=== PATIENT | female | born 1955 | race Caucasian/White ===

== ENCOUNTER 2023-09-10 15:15 | Outpatient (AMB) | payer BC, SELFPAY ==
[2023-09-10 15:55] VITALS: BP 122/70; PULSE 53; O2SAT 100; BMI 21.6
--- NOTE | 2023-09-10 15:55 | MHC.OFFVIS ---
Intake Vital Signs 09/10/23 15:55 Height 5 ft 6.5 in Weight 136 lb BMI 21.6 BP 122/70 Blood Pressure Location Lt brachial Position Sitting Pulse 53 Pulse Source Pulse Oximeter Pulse Oximetry (%) 100 Oxygen Delivery Method Room Air Intake Visit Reasons: question of shortness of breath [employer] Combination Teacher Required: No Private Branch Exchange Repairer: Private Branch Exchange Repairer offered & declined Accompanied by: Self / Same As Patient Allergies No Known Allergies Allergy (Verified 09/10/23 16:00) Medication List - Last Reconciled 09/10/23 by Oneyda Mccoy LPN benzonatate 100 mg PO BID-TID PRN clonazepam 0.25 mg PO BID lamotrigine 200 mg PO DAILY lithium carbonate ER 300 mg PO DAILY omeprazole 10 mg PO DAILY valsartan 160 mg PO DAILY HPI question of shortness of breath HPI Details Lexi is a pleasant 67 year old female, never smoker, with underlying hypertension, hypothyroidism, GERD, and bipolar. She was referred by PCP for pulmonary evaluation. She reports more frequent episodes of dyspnea with moderate exertion, dry cough and substernal nonradiating chest discomfort that began after having COVID in February 2023. She reports frequency and intensity of cough has decreased and denies wheezing. She reportedly had a cardiac evaluation which was unremarkable. She had a recent PFT which was suggestive of asthma, full report below. CXR unremarkable. She also reports difficulty with eating, often resulting in cough or choking on foods/liquids and feeling as though food gets stuck in her throat. She previously reported symptoms of heartburn using PPI. She reports having an upcoming appointment for GI evaluation. She denies any personal or family history of respiratory conditions. She denies any occupational exposures. [facility] Social History (Updated 09/10/23 @ 16:01 by Oneyda Mccoy LPN) Patient Tobacco Use Status: Never used Tobacco Smoked in Last 30 Days: No Review of Systems Const Denies chills, Denies excessive sweating, Denies fever(s), Denies headache(s) and Denies night sweats Eyes Denies irritation and Denies itchy eyes ENT Reports Normal hearing present, Denies headache(s), Denies nasal congestion, Denies nasal discharge and Denies sore throat Card Denies chest pain at rest, Denies chest pain with activity, Denies claudication, Denies leg edema, Denies orthopnea and Denies paroxysmal nocturnal dyspnea Resp Denies chest congestion, Denies excessive phlegm production, Denies pain on inspiration, Denies pain with cough, Denies stridor and Denies wheezing Musc Denies myalgias Neuro Reports Normal hearing present and Denies headache(s) Endo Denies excessive sweating Stewart/Lymph Denies lymphadenopathy Aller/Immun Denies itchy eyes, Denies seasonal rhinorrhea and Denies wheezing Physical Exam Vital Signs: Last Vital Signs Pulse 53 09/10/23 15:55 BP 122/70 09/10/23 15:55 Pulse Ox 100 09/10/23 15:55 Oxygen Delivery Method Room Air 09/10/23 15:55 BMI result Body Mass Index 21.6 Const General: cooperative, healthy appearing, comfortable, no acute distress, well developed and alert Orientation/consciousness: patient oriented x3 Limitations: no limitations HEENT Head: Yes normal to inspection, Yes normocephalic and Yes atraumatic Ears: hearing grossly normal bilaterally and external ears normal Eyes General: appearance normal, both eyes and all related structures Eyelids: Yes eyelids normal Sclerae: sclerae normal EOM: EOMs intact bilaterally Neck Neck: Yes normal visual inspection and Yes no lymphadenopathy Lymphatic: no lymphadenopathy noted Chest Chest palpation & inspection: normal inspection of the chest Resp Effort & Inspection: normal respiratory effort, able to speak in complete sentences, no audible wheezes, no cough, no stridor, not tachypneic, no tripod positioning and no use of accessory muscles Auscultation: clear to auscultation bilaterally Cardio Jugular venous distension: no JVD Rate: regular rate Rhythm: regular rhythm Skin Other: warm, dry General skin exam: no rashes or lesions noted Neuro General: patient oriented x3 Cranial nerves: Yes Normal hearing present Cognition (Neuro): normal cognition Gait exam (Neuro): Normal gait present Extrem General: Yes normal to inspection, Yes capillary refill normal, Yes no clubbing, cyanosis or edema and Yes no pedal edema Psych Appearance: grossly normal and well kempt Speech and movement: Normal speech and movement present and Clear speech present Affect: normal affect Attitude: cooperative Thought process: Normal thought process present Thought content: Normal thought content present Insight: Good insight present (Psych) Judgement: Good judgement present (Psych) Results Reviewed Results Reviewed: Assessment & Plan Assessment & Plan (1) Asthma: Code(s): J45.909 - Unspecified asthma, uncomplicated (2) Dyspnea on exertion: Code(s): R06.09 - Other forms of dyspnea (3) Cough: Code(s): R05.9 - Cough, unspecified (4) Dysphagia: Code(s): R13.10 - Dysphagia, unspecified Plan Lexi's symptoms are likely related to underlying asthma and possible GERD versus microaspiration. PFT revealed normal spirometry with significant response to bronchodilator. TLC 124%, RV 176%, suggestive of air trapping. DLCO within normal limits. Had long detailed discussion regarding PFT and trialing a ESPERANZA vs ICS/LABA. Patient hesitant to trial medications but willing to trial albuterol. Patient with persistent cough and normal CXR, will send for chest CT to evaluate for any parenchymal disease. Patient also reported symptoms of dysphasia that may be contributing to symptoms. Will send for barium swallow. All questions were answered and patient is in agreement of plan. Will follow up in 4-6 weeks to review results and response to inhaler. Orders: Orders CT chest wo IV con Today R05.9 - Cough, unspecified, R06.09 - Other forms of dyspnea FL barium swallow modified Today R13.10 - Dysphagia, unspecified Medications: New albuterol sulfate 90 mcg/actuation 2 puffs inhalation Q4-6H PRN 1 ea 3RF shortness of breath or wheezing Coding Level of Care Code New Pt Level 5 (69738) Diagnoses Asthma J45.909 Dyspnea on exertion R06.09 Cough R05.9 Dysphagia R13.10 Time Spent (min) 50
== END 2023-09-10 16:54 | disposition home or self-care (01) ==
LOC: HO.HPSW 15:15
PROVIDERS: PCP Internal Medicine; Referring Provider Internal Medicine; Visit Provider Nurse Practitioner Family
DX: J45.909 Unspecified asthma, uncomplicated (principal); R05.9 Cough, unspecified; R13.10 Dysphagia, unspecified
CPT/HCPCS: 99205

== ENCOUNTER → 2023-09-10 15:15 | Outpatient (BNVA) | payer BC, SELFPAY | PROVIDERS: PCP Internal Medicine; Visit Provider Nurse Practitioner Family ==

== ENCOUNTER 2023-10-10 16:46 | Outpatient (REF) | payer BC, SELFPAY ==
--- NOTE | ~2023-10-10 | CT_ITS ---
EXAMINATION: CT CHEST WITHOUT CONTRAST CLINICAL INFORMATION: Cough, unspecified. COMPARISON: None available. TECHNIQUE: Multidetector volumetric CT imaging of the chest was done. Axial MIP volume rendering provided. Sagittal and coronal reformatted images were obtained. This CT examination was performed using dose optimization techniques as appropriate, variously including the following: *Automated exposure control *Adjustment of mA and/or kV according to patient size (this includes techniques or standardized protocols for targeted exams where dose is matched to indication/reason for exam; i.e. extremities or head) *Use of iterative reconstruction technique DLP: 126 mGy-cm FINDINGS: LUNGS: Mild biapical pleural parenchymal scarring. Mildly thick-walled airways. No evidence of interstitial lung disease. No focal consolidation. No suspicious lung nodules. MEDIASTINUM: No adenopathy. Ascending aorta top normal in size measuring 3.9 cm. CORONARY ARTERY CALCIFICATION: None visualized on this study. PLEURA: There is no pleural effusion. No pleural mass or thickening. AXILLA: No lymphadenopathy. UPPER ABDOMEN: Simple cyst in the upper left kidney. No follow-up imaging is recommended. OSSEOUS STRUCTURES: Unremarkable. CT/CT chest wo IV con IMPRESSION: Mildly thick-walled airways. No focal pneumonia. Fleischner guidelines were followed.
== END 2023-10-10 16:47 | disposition home or self-care (01) ==
LOC: HO.CT 16:46
PROVIDERS: PCP Internal Medicine; Visit Provider Nurse Practitioner Family
DX: R05.9 Cough, unspecified (principal); R06.09 Other forms of dyspnea
CPT/HCPCS: 71250

== ENCOUNTER 2023-10-31 10:37 | Outpatient (REF) | payer BC, SELFPAY ==
--- NOTE | ~2023-10-31 | FL_ITS ---
EXAMINATION: Modified Barium Swallows CLINICAL INFORMATION: Dysphagia COMPARISON: None TECHNIQUE: Modified barium swallow was performed under lateral fluoroscopy with patient in standing position. Different consistency of barium was administered by the speech therapist. FINDINGS: Patient is status post anterior fusion of C5-C7. There are ventral osteophytes spanning C4-C5. Plate and screw fixation C5-C7 appears intact without complication. No laryngeal penetration or aspiration is noted. FLUOROSCOPY TIME: 24 seconds Number of Spot Images: 1 DOSE AREA PRODUCT: 220 uGy-m2 (microgray-meter squared) FL/FL barium swallow modified IMPRESSION: 1. No laryngeal penetration or aspiration is seen on this examination 2. Status post anterior cervical fusion of C5-C7 Refer to the full speech therapy report for further clarification This procedure was performed by Justin Babcock PA-C, and supervised by Dr. Mars
--- NOTE | 2023-11-13 14:02 | MHC.SL.IMP ---
Date of Plan of Treatment: 10/31/23 Onset of Symptoms/Illness: 10/31/23 Date Treatment Started: 10/31/23 Admitting Diagnosis: Dysphagia, unspecified (R13.10) Primary Speech & Language Diagnosis: R13.13 Pharyngeal Phase Dysphagia Reason for Today's Visit: 60400 Modified Barium Swallow Study Comments: Reports coughing while eating. Pre-evaluation Dietary Consistencies: Regular Pre-evaluation Liquid Consistency: Thin Pre-evaluation Medication Administration: Whole with Liquid Oral Motor Exam Facial Symmetry: Normal for Patient Symmetrical Facial Movement: Oral Expression Ability: No Impairment Is patient able to manage secretions?: Yes Is patient able to produce volitional cough?: Yes Food and Liquid Trials: Oral Impairment: Lip Closure: 0=No labial escape Oral Impairment: Tongue Control During Bolus Hold: 0=Cohesive bolus between tongue to palatal seal Oral Impairment: Bolus Preparation/Mastication: 0=Timely and efficient chewing and mashing Oral Impairment: Bolus Transport/Lingual Motion: 0=Brisk tongue motion Oral Impairment: Oral Residue: 1=Trace residue lining oral structures Oral Impairment:Initiation of Pharyngeal Swallow: 2=Bolus head at posterior laryngeal surface of epiglottis Pharyngeal Impairment: Soft Palate Elevation: 0=No bolus between soft palate (SP)/pharyngeal wall (PW) Pharyngeal Impairment: Laryngeal Elevation: 0=Complete superior movement of thyroid cartilage (see description) Pharyngeal Impairment: Anterior Hyoid Excursion: 0=Complete anterior movement Pharyngeal Impairment: Epiglottic Movement: 0=Complete inversion Pharyngeal Impairment: Laryngeal Vestibular Closure:: 0=Complete: no air/contrast in laryngeal vestibule Pharyngeal Impairment: Pharyngeal Stripping Wave: 0=Present: complete Pharyngeal Impairment: Pharyngeal Contraction: Did not test Pharyngeal Impairment: Pharyngoesophageal Segment Openin=Partial distention/partial duration: partial obstruction of flow Pharyngeal Impairment: Tongue Base (TB) Retraction: 1=Trace column of contrast/air between TB and posterior PW Pharyngeal Impairment: Pharyngeal Residue: 0=Complete pharyngeal clearance Pharyngeal Impairment: Esophageal Clearance Upright Position: Did not test Impressions and Recommendations Clinical Observations: Current (pre-evaluation) Intake/Diet: Pre-Study Functional Oral Intake Scale (FOIS): 7- Total oral intake with no restrictions MBSImP ID: [id number] Results: Lip closure for intraoral bolus containment resulted in no labial escape. Tongue control during bolus hold maintained a cohesive bolus held between tongue to palate seal. Bolus preparation and mastication resulted in timely and efficient chewing and mashing. Bolus transport/lingual motion was with brisk tongue motion. Oral residue was a trace, lining oral structures. Initiation of the pharyngeal swallow occurred as the bolus head was at the posterior laryngeal surface of the epiglottis. Soft palate elevation resulted in no bolus between the soft palate and the pharyngeal wall. Laryngeal elevation demonstrated complete superior movement of the thyroid cartilage with complete approximation of the arytenoids to the epiglottic petiole. Anterior hyoid excursion demonstrated complete anterior movement. Epiglottic movement resulted in complete inversion. Laryngeal vestibular closure was complete, as indicated by no air or contrast within the laryngeal vestibule at the height of the swallow. Pharyngeal stripping wave was present and complete. Pharyngeal contraction could not be determined due to logistical reasons not related to physiologic impairment. Pharyngoesophageal segment opening demonstrated partial distension/partial duration, with partial obstruction of bolus flow. Tongue base retraction allowed a trace column of contrast or air between the retracted tongue base and the posterior pharyngeal wall. Pharyngeal residue was not present. There was complete pharyngeal clearance. Esophageal clearance in the upright position could not be assessed due to logistical reasons not related to physiologic impairment. Oral Impairment Score: 2 Pharyngeal Impairment Score: 1 (absence of score, component 13) Esophageal Impairment Score: --- (absence of score, component 17) Laryngeal Penetration and Aspiration: Neither penetration nor aspiration was observed in today's study with Cookie, Pudding-thick, Thin. SUMMARY: No evidence of aspiration or penetration present during today's study. Incidental finding of a prominent CP bar anterior to her cervical fusion. Further assessment by GI if interventions are available. Pt was counselled extensively that she did not show significant pharyngeal residue that would account for her feeling of food being stuck. She provides vague information about her history with GI. She reports she has been cutting her prescribed PPI in half. She is advised to follow-up with this professional for updated recommendations and further diagnostic assessment of her globus sensation after the swallow. PLAN: Intake Recommendations: Post-Study Functional Oral Intake Scale (FOIS): 7- Total oral intake with no restrictions Liquid Intake Recommendation: Thin Liquid Intake Strategies: Unrestricted Dietary Recommendations: Regular Medication Administration: Whole with Liquid Please contact the pharmacy regarding appropriate crushable or liquid drug formulations that are available whenever modified delivery is recommended. Compensatory Strategies Recommended: Sitting Upright (90 deg) Small Bites and Sips Alternate Liquids/Solids Rate of Ingestion Change Avoid Specific Foods Supervision during eating and or drinking: None Needed Recommended Treatments: Compens. Strategy Educat. Recommendation for Speech Therapy: NA:Typical Evaluation Timeline to reassess: PRN Generator Rebuilder Clinician/Clinical Fellow: No Supervisory Statement: N/A Speech Language Pathologist: Pankaj Chaudhari M.A., CCC-SLAB LIFTING ENGINEER
== END 2023-10-31 10:38 | disposition home or self-care (01) ==
LOC: HO.XRAY 10:37
PROVIDERS: PCP Internal Medicine; Visit Provider Nurse Practitioner Family
DX: R13.10 Dysphagia, unspecified (principal)
CPT/HCPCS: 74230; 92611

== ENCOUNTER → 2023-10-31 10:38 | Outpatient (BNV) | payer BC, SELFPAY | PROVIDERS: PCP Internal Medicine; Visit Provider Radiology Diagnostic Radiology | DX: R13.10 Dysphagia, unspecified (principal) | CPT/HCPCS: 74230 ==

== ENCOUNTER 2023-11-12 10:52 | Outpatient (AMB) | payer BC, SELFPAY ==
[2023-11-12 10:55] VITALS: BP 124/64; PULSE 56; O2SAT 100; BMI 21.3
--- NOTE | 2023-11-12 10:55 | MHC.OFFVIS ---
Intake Vital Signs 11/12/23 10:55 Height 5 ft 6.5 in Weight 134 lb BMI 21.3 BP 124/64 Blood Pressure Location Rt brachial Position Sitting Pulse 56 Pulse Source Pulse Oximeter Pulse Oximetry (%) 100 Oxygen Delivery Method Room Air Intake Visit Reasons: S/p pft Weaver Hand Loom Required: No Sap Business Objects Developer: Sap Business Objects Developer offered & declined Accompanied by: Self / Same As Patient Allergies No Known Allergies Allergy (Verified 11/12/23 11:02) Medication List - Last Reconciled 11/12/23 by Oneyda Mccoy LPN albuterol sulfate 90 mcg/actuation 2 puffs inhalation Q4-6H PRN benzonatate 100 mg PO BID-TID PRN clonazepam 0.25 mg PO BID lamotrigine 200 mg PO DAILY lithium carbonate ER 300 mg PO DAILY omeprazole 10 mg PO DAILY progesterone micronized 200 mg PO BEDTIME thyroid (pork) (IRRIGATION EQUIPMENT REMOVER Thyroid) 60 mg PO BID valsartan 160 mg PO DAILY HPI S/p pft HPI Details Lexi is a pleasant 67 year old female, never smoker, with underlying hypertension, hypothyroidism, GERD, and bipolar. She was referred by PCP for pulmonary evaluation. She reports more frequent episodes of dyspnea with moderate exertion, dry cough and substernal nonradiating chest discomfort that began after having COVID in February 2023. She reports frequency and intensity of cough has decreased and denies wheezing. She reportedly had a cardiac evaluation which was unremarkable. She had a recent PFT which was suggestive of asthma. At the last visit we discussed trialing an ICS but she wanted to hold off and use albuterol PRN. She reports infrequent use of albuterol. Today she presents to review chest CT, MDSS and discuss a methacholine challenge. Of note, she will be going to PT for evaluation of costcochondritis. REPLACED BY [facility] Social History (Updated 11/12/23 @ 11:05 by Oneyda Mccoy LPN) Patient Tobacco Use Status: Never used Tobacco Smoked in Last 30 Days: No Review of Systems Const Denies chills, Denies excessive sweating, Denies fever(s), Denies headache(s) and Denies night sweats Eyes Denies irritation and Denies itchy eyes ENT Reports Normal hearing present, Denies headache(s), Denies nasal congestion, Denies nasal discharge and Denies sore throat Card Denies chest pain at rest, Denies chest pain with activity, Denies claudication, Denies leg edema, Denies orthopnea and Denies paroxysmal nocturnal dyspnea Resp Denies chest congestion, Denies excessive phlegm production, Denies pain on inspiration, Denies pain with cough, Denies stridor and Denies wheezing Musc Denies myalgias Neuro Reports Normal hearing present and Denies headache(s) Endo Denies excessive sweating Stewart/Lymph Denies lymphadenopathy Aller/Immun Denies itchy eyes, Denies seasonal rhinorrhea and Denies wheezing Physical Exam Vital Signs: Last Vital Signs Pulse 56 11/12/23 10:55 BP 124/64 11/12/23 10:55 Pulse Ox 100 11/12/23 10:55 Oxygen Delivery Method Room Air 11/12/23 10:55 BMI result Body Mass Index 21.3 Const General: cooperative, healthy appearing, comfortable, no acute distress, well developed and alert Orientation/consciousness: patient oriented x3 Limitations: no limitations HEENT Head: Yes normal to inspection, Yes normocephalic and Yes atraumatic Ears: hearing grossly normal bilaterally and external ears normal Eyes General: appearance normal, both eyes and all related structures Eyelids: Yes eyelids normal Sclerae: sclerae normal EOM: EOMs intact bilaterally Neck Neck: Yes normal visual inspection and Yes no lymphadenopathy Lymphatic: no lymphadenopathy noted Chest Chest palpation & inspection: normal inspection of the chest Resp Effort & Inspection: normal respiratory effort, able to speak in complete sentences, no audible wheezes, no cough, no stridor, not tachypneic, no tripod positioning and no use of accessory muscles Auscultation: clear to auscultation bilaterally Cardio Jugular venous distension: no JVD Rate: regular rate Rhythm: regular rhythm Skin Other: warm, dry General skin exam: no rashes or lesions noted Neuro General: patient oriented x3 Cranial nerves: Yes Normal hearing present Cognition (Neuro): normal cognition Gait exam (Neuro): Normal gait present Extrem General: Yes normal to inspection, Yes capillary refill normal, Yes no clubbing, cyanosis or edema and Yes no pedal edema Psych Appearance: grossly normal and well kempt Speech and movement: Normal speech and movement present and Clear speech present Affect: normal affect Attitude: cooperative Thought process: Normal thought process present Thought content: Normal thought content present Insight: Good insight present (Psych) Judgement: Good judgement present (Psych) Results Reviewed Results Reviewed: [address] [address] [address] Scan Report Signed Patient: Lexi Broussard MR#: [id number] : 1955 Acct:[id number] Age/Sex: 68 / F ADM Date: 10/10/23 Loc: HO.CT Attending Dr: Nishi Stiles NP Ordering Physician: Nishi Stiles NP Date of Service: 10/10/23 Procedure(s): CT chest wo IV con Accession Number(s): [id number] cc: Randi Blancas MD; Nishi Stiles NP~ EXAMINATION: CT CHEST WITHOUT CONTRAST CLINICAL INFORMATION: Cough, unspecified. COMPARISON: None available. TECHNIQUE: Multidetector volumetric CT imaging of the chest was done. Axial MIP volume rendering provided. Sagittal and coronal reformatted images were obtained. This CT examination was performed using dose optimization techniques as appropriate, variously including the following: *Automated exposure control *Adjustment of mA and/or kV according to patient size (this includes techniques or standardized protocols for targeted exams where dose is matched to indication/reason for exam; i.e. extremities or head) *Use of iterative reconstruction technique DLP: 126 mGy-cm FINDINGS: LUNGS: Mild biapical pleural parenchymal scarring. Mildly thick-walled airways. No evidence of interstitial lung disease. No focal consolidation. No suspicious lung nodules. MEDIASTINUM: No adenopathy. Ascending aorta top normal in size measuring 3.9 cm. CORONARY ARTERY CALCIFICATION: None visualized on this study. PLEURA: There is no pleural effusion. No pleural mass or thickening. AXILLA: No lymphadenopathy. UPPER ABDOMEN: Simple cyst in the upper left kidney. No follow-up imaging is recommended. OSSEOUS STRUCTURES: Unremarkable. CT/CT chest wo IV con IMPRESSION: Mildly thick-walled airways. No focal pneumonia. Fleischner guidelines were followed. Dictated By: Raghav Muir MD Signed By: <Electronically signed by Raghav Muir MD in OV> 10/15/23 1509 DD/ 1714 TD/TT: Terminal Manager: [place] Assessment & Plan Assessment & Plan (1) Asthma: Code(s): J45.909 - Unspecified asthma, uncomplicated (2) Dyspnea on exertion: Code(s): R06.09 - Other forms of dyspnea (3) Cough: Code(s): R05.9 - Cough, unspecified (4) Dysphagia: Code(s): R13.10 - Dysphagia, unspecified Plan Reviewed chest CT which revealed mildly thick-walled airways suggestive of chronic bronchitis/COPD. MBSS unremarkable, no signs of aspiration. Again reviewed prior PFT which revealed normal spirometry with significant response to bronchodilator. We had long detailed discussion regarding PFT and its correlation with asthma, however patient insistent on scheduling methacholine challenge. Will order. In the mean time, willing to trial Flovent. All questions were answered and patient is in agreement of plan. Will follow up to review results and response to inhaler. Medications: New fluticasone propionate 44 mcg/actuation (Flovent HFA) 2 puffs inhalation BID 10.6 grams 3RF Coding Level of Care Code Est Pt Level 4 (65046) Diagnoses Asthma J45.909 Dyspnea on exertion R06.09 Cough R05.9 Dysphagia R13.10
== END 2023-11-12 11:47 | disposition home or self-care (01) ==
PROVIDERS: PCP Internal Medicine; Visit Provider Nurse Practitioner Family
DX: J45.909 Unspecified asthma, uncomplicated (principal); R06.09 Other forms of dyspnea; R05.9 Cough, unspecified; R13.10 Dysphagia, unspecified
CPT/HCPCS: 99214

== ENCOUNTER → 2023-11-12 10:52 | Outpatient (BNVA) | payer BC, SELFPAY | PROVIDERS: PCP Internal Medicine; Visit Provider Nurse Practitioner Family ==

== ENCOUNTER 2024-03-09 14:01 | Outpatient (REF) | payer BC, SELFPAY ==
[2024-03-09 09:18] VITALS: PULSE 52; RESP 16; O2SAT 98
--- NOTE | 2024-03-09 16:08 | PFT_ITS ---
Methacholine challenge test performed with progressively increasing methacholine concentrations with no significant drop in FEV1 observed. Impression: Negative methacholine challenge test. MTDD
== END 2024-03-09 14:02 | disposition home or self-care (01) ==
LOC: HO.RESP 14:01
PROVIDERS: Visit Provider Nurse Practitioner Family
DX: R05.9 Cough, unspecified (principal); R06.09 Other forms of dyspnea
CPT/HCPCS: 94010; 94070; 94640; 94727; 94729

== ENCOUNTER 2024-08-19 11:08 | Outpatient (AMB) | payer BC, SELFPAY ==
[2024-08-19 11:17] VITALS: BP 142/75; PULSE 60; O2SAT 98; BMI 21.1
--- NOTE | 2024-08-19 11:17 | A.OFFVIS_ITS ---
Vital Signs 08/19/24 11:17 Height 5 ft 6 in Weight 131 lb BMI 21.1 BP 142/75 H Blood Pressure Location Lt brachial Position Sitting Pulse 60 Pulse Source Pulse Oximeter Pulse Oximetry (%) 98 Oxygen Delivery Method Room Air Intake Visit Reasons: Back pain Allergies No Known Allergies Allergy (Verified 08/19/24 11:18) Medication List - Last Reconciled 08/19/24 by Karol Mccurdy albuterol sulfate 90 mcg/actuation 2 puffs inhalation Q4-6H PRN benzonatate 100 mg PO BID-TID PRN clonazepam 0.25 mg PO BID fluticasone propionate 44 mcg/actuation (Flovent HFA) 2 puffs inhalation BID lamotrigine 200 mg PO DAILY lithium carbonate ER 300 mg PO DAILY omeprazole 10 mg PO DAILY progesterone micronized 200 mg PO BEDTIME thyroid (pork) (PROJECTION ENGINEER Thyroid) 60 mg PO BID valsartan 160 mg PO DAILY HPI Comments Details: Lexi is a very pleasant 68-year-old female who presents the office today for evaluation and management of her chronic pain PCP referred the patient here for back pain, today she states her left elbow pain is most bothersome and she would like to focus on that area. 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 Playing a guitar exacerbates her pain. Pain is lateral left elbow, tender to palpation and worse with activity. Pain with lifting, bending and carrying things Pain today is rated as 7/10, constant and worse throughout the day She has been going to physical therapy with minimal improvement. Taking Tylenol and ibuprofen with very short-term relief. Using lidocaine patches, an elbow brace and also compression garment with minimal relief In terms of muscle damage condition is described as aching, hot, stabbing, burning, sharp Pain is negatively impacting patient's enjoyment of life, general activity, normal work, recreational activities She has not had any imaging of the elbow. Recent MRIs of her neck and back were performed, results as per below. These were discussed with patient during the visit today. [facility] Social History (Updated 11/12/23 @ 11:05 by Oneyda Mccoy LPN) Patient Tobacco Use Status: Never used Tobacco Review of Systems Const All systems reviewed & are unremarkable except as noted in HPI and below Physical Exam Vital Signs: Last Vital Signs Pulse 60 08/19/24 11:17 BP 142/75 H 08/19/24 11:17 Pulse Ox 98 08/19/24 11:17 Oxygen Delivery Method Room Air 08/19/24 11:17 BMI result Body Mass Index 21.1 General: awake, alert, oriented. Answers questions appropriately. Fully engaged in examination. Skin: warm, dry, intact HEENT: Normocephalic. Hearing intact. Cardiac: External chest normal in appearance. Respiratory: No cough, audible wheezing or stridor. Abdomen: without gross distension. MS: No obvious swelling or deformities. Able to stand on bilateral tiptoes and bilateral heels.? Able to transition from sit to stand unassisted. Ambulates with bilaterally normal heel strike and toe off Left elbow: Tenderness to palpation lateral aspect. Full range of motion. 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 Pain with flexion and extension against resistance Neurological: Oriented to person, place, time and situation. Thought process intact. No gait abnormalities appreciated. Psychiatric: Appropriate mood and affect. Good judgment and insight. Results Reviewed Results Reviewed: 08/12/24 MRI LS FINDINGS: Normal lumbar alignment is demonstrated. Vertebral heights are well maintained. Bone marrow signal is within normal limits, and no suspicious osseous lesion is identified. Conus medullaris is unremarkable. There is multilevel disc desiccation and disc space narrowing greater in the lower lumbar spine with mild Type I Modic complete changes greater at L4-5 L5-S1. There is 1 to 2 mm anterolisthesis L3 and L4 with mild facet arthrosis. Paraspinal soft tissues and visualized portions of the abdomen and pelvis are unremarkable. There is partially imaged lesion in the superior medial aspect of the right kidney measures 1.5 cm and demonstrates complex signal. There appears to be fluid-fluid level. At L1-2 there is no significant disc herniation or protrusion. No central canal or neural foraminal stenosis is demonstrated. At L2-3 there is mild annular disc bulge. There is mild facet arthrosis. Central canal is patent. There is no significant neural foraminal stenosis. Findings appear stable. At L3-4 there is minimal anterolisthesis with broad-based disc bulge. There is small right foraminal disc protrusion. There is mild narrowing of the central canal and mild to moderate bilateral neural foraminal stenosis. Findings appear stable. At L4-5 there is broad-based disc bulge and facet arthrosis and ligament flavum hypertrophy. There is mild narrowing of the left lateral recess. There is bilateral mild to moderate narrowing of the neuroforamina. Findings appear stable. At L5-S1 there is broad based disc bulge and small central disc protrusion. Central canal is patent. There is bilateral moderate to advanced narrowing of the neuroforamina greater on the left. Findings appear stable. IMPRESSION: Redemonstration of degenerative changes predominantly in the lower lumbar spine greater at L5-S1 which appear unchanged compared with prior study. Minimal anterolisthesis of L3 on L4. Renal lesion in the superior aspect of the left kidney measures 1.5 cm and demonstrates complex signal with layering fluid/protein. Recommend ultrasound or CT for further evaluation 08/09/24 FINDINGS: MRI cervical spine: There is anterior discectomy and fusion, C5-C7 level. Normal cervical alignment is demonstrated. Vertebral heights are well maintained. Craniocervical junction is unremarkable. Bone marrow signal is within normal limits, and no suspicious osseous lesion is identified. Prevertebral and paraspinal soft tissues are within normal limits. Visualized portions of the posterior fossa are unremarkable. Cervical cord demonstrates normal course, caliber, and signal characteristics. No epidural fluid collection or hematoma is identified. At C2-3 there is no significant disc herniation or protrusion. No central canal or neuroforaminal stenosis is demonstrated. At C3-4 disc-osteophyte complex with axar-hx-lcisysla canal narrowing, [id number] right and moderate left foraminal narrowing. At C4-5 disc-osteophyte complex with moderate canal narrowing and moderate bilateral foraminal narrowing. At C5-6 disc-osteophyte complex with mild canal narrowing, and [id number] bilateral foraminal narrowing At C6-7 there is no significant disc herniation or protrusion. No central canal or neuroforaminal stenosis is demonstrated. At C7-T1 there is no significant disc herniation or protrusion. No central canal or neuroforaminal stenosis is demonstrated. MRI thoracic spine: Normal alignment is demonstrated. Vertebral heights are well maintained. Bone marrow signal is within normal limits, and no suspicious osseous lesion is identified. Prevertebral and paraspinal soft tissues are within normal limits. Thoracic cord demonstrates normal course, caliber, and signal characteristics. No epidural fluid collection or hematoma is identified. No significant central canal stenosis is identified. Neural foramina are patent throughout. Visualized chest and abdomen are grossly unremarkable. IMPRESSION: MRI cervical spine: 1.Anterior discectomy and fusion, C5-C7 level. 2.No high-grade canal stenosis or disc herniation. 3.Disc-osteophyte complex with canal and foraminal narrowing C3-4 to C5-6 level as above. 4.No STIR signal abnormality to suggest bone marrow edema, soft tissue or ligamentous injury. MRI thoracic spine: 1.Degenerative disc disease appears mild, with mild loss of disc height and mild disc desiccation. 2.Vertebral heights are preserved. No malalignments. 3.No significant canal stenosis or disc herniation. 4.No significant foraminal stenosis at thoracic levels. 5.No STIR signal abnormality to suggest bone marrow edema, soft tissue or ligamentous injury. Assessment & Plan Assessment & Plan (1) Elbow pain, left: Code(s): M25.522 - Pain in left elbow Category: Medical Plan Lexi is a very pleasant 68-year-old female who presented to the office today for evaluation management of her left elbow pain Patient has exhausted conservative therapy including PT, home exercise program, NSAIDs, Tylenol, compression and splinting without improvement of her symptoms Will schedule for ultrasound-guided left extensor tendon injection with local anesthetic. If no improvement with injection she may benefit from PRP. All questions and concerns were answered, patient agrees with the plan. Follow- up after procedure, sooner if needed Orders: Orders XR elbow LT min 3V Today M25.522 - Pain in left elbow Coding Level of Care Code New Pt Level 4 (80876) Complex EM visit Add On G2211 Diagnoses Elbow pain, left M25.522
== END 2024-08-19 11:53 | disposition home or self-care (01) ==
PROVIDERS: PCP Internal Medicine; Referring Provider Physician Assistant Medical; Visit Provider Registered Nurse Emergency
DX: M25.522 Pain in left elbow (principal)
CPT/HCPCS: 99204

== ENCOUNTER 2024-08-19 11:08 | Outpatient (REF) | payer BC, SELFPAY | END 2024-08-19 11:09 | disposition home or self-care (01) | LOC: HO.XRAY 11:08 | PROVIDERS: PCP Internal Medicine; Referring Provider Physician Assistant Medical; Visit Provider Registered Nurse Emergency | DX: M25.522 Pain in left elbow (principal) | CPT/HCPCS: 73080 ==